=== PATIENT | male | born 1940 | race Caucasian/White ===

== ENCOUNTER 2024-06-12 08:39 | Outpatient (CLI) | payer MEDICARE, SELFPAY | END 2024-06-12 08:40 | disposition home or self-care (01) | PROVIDERS: PCP Family Medicine; Visit Provider Family Medicine | DX: R53.83 Other fatigue (principal); R26.89 Other abnormalities of gait and mobility; Z12.5 Encounter for screening for malignant neoplasm of prostate; Z13.21 Encounter for screening for nutritional disorder; Z13.29 Encounter for screening for other suspected endocrine disorder | CPT/HCPCS: 80053; 82607; 84439; 84443; 86618; G0103 ==